=== PATIENT | female | born 1945 | race Caucasian/White ===

== ENCOUNTER → 2016-08-24 | Outpatient (CLI) | payer OTHER ==
[~2016-08-24] MED LIST: ADVAIR HFA115 MCG/21 INH; AMLODIPINE BESYL5 MG PO; CHLORTHALIDONE25 MG PO; ENDOCET 10-3251 EACH PO; HYDROCODONE-AP1 EAC6 PO; IBUPROFEN 200200 M1 PO; IRON325 PO; KLOR-CON 1010 MEQ PO; LASIX 20 MG TAB20 MG PO; LIPITOR 20 MG T20 M1 PO; LISINOPRIL40 MG PO; MOBIC15 MG PO; MULTIVITAMINS PO; PRILOSEC20 MG PO; PROZAC20 MG PO; SIMVASTATIN80 MG PO; VENTOLIN HFA 1818 GM INH; VITAMIN B-12500 MCG PO
== END | disposition home or self-care (01) ==
LOC: RAD 08-04 06:52
DX: M54.5 Low back pain (principal)